=== PATIENT | male | born 1955 | race Caucasian/White ===

== ENCOUNTER 2021-10-24 22:28 | Emergency (ER) | payer MEDICARE, BC, SELFPAY ==
[2021-10-24 22:35] VITALS: BP 176/83; PULSE 77; RESP 16; TEMP 36.5; O2SAT 98; BMI 25.0
--- NOTE | 2021-10-24 23:06 | ED.SKABFB ---
HPI - Skin/Abscess/Foreign Bdy General Chief complaint: Skin/Abscess/Foreign Body Stated complaint: Both lower legs hives/water blister x2 months Time Seen by Provider: 10/24/21 23:05 Source: patient Mode of arrival: Ambulatory Limitations: no limitations History of Present Illness HPI narrative: 66-year-old gentleman with a history of asthma, allergies, reflux presents with worsening rash over the posterior aspect of both calves right greater than left. Initially started on the right lower calf as a pruritic plaque that has extended and then developed vesicles that are beginning to weep with increasing itching and increasing erythema. He describes no fevers, cough, chills, abdominal pain, vomiting, diarrhea, palpitations, chest pain, dyspnea, headaches. Related Data Home Medications Medication Instructions Recorded Confirmed cetirizine 10 mg tablet 10 mg PO BEDTIME 10/24/21 10/24/21 omeprazole 40 mg capsule,delayed 40 mg PO BEDTIME 10/24/21 10/24/21 release Previous Rx's Medication Instructions Recorded cephalexin 500 mg capsule 500 mg PO TID 7 Days #21 cap 10/24/21 methylprednisolone 4 mg tablets in 4 mg PO DAILY #21 ea 10/24/21 a dose pack (Medrol (Erasmo)) Allergies Allergy/AdvReac Type Severity Reaction Status Date / Time No Known Drug Allergies Allergy Verified 10/24/21 23:49 Review of Systems Review of Systems Narrative: Remainder of complete review of systems is otherwise unremarkable except for that included in the HPI. Patient History Medical History (Updated 10/24/21 @ 23:44 by Sera Matute MD) Acid reflux Asthma Social History Smoking Status: Never smoker Smoking Status: Never smoker alcohol intake frequency: a few times a week Substance Use Type: does not use Exam Initial Vital Signs Initial Vital Signs: Vital Signs Temperature 97.7 F 10/24/21 22:35 Pulse Rate 77 10/24/21 22:35 Respiratory Rate 16 10/24/21 22:35 Blood Pressure 176/83 H 10/24/21 22:35 Pulse Oximetry 98 10/24/21 22:35 General: Healthy appearing, in no acute distress. Able to give a complete and coherent history. Well-nourished well-developed HEENT: Moist mucous membranes, normal sclera with reactive pupils, Neck: No JVD, supple Respiratory: Lungs with scattered mild wheezing in all lung canales, no rales no rhonchi. Full and symmetrical air movement Cardiac: Regular rate and rhythm no murmurs no bruits Abdomen: Soft, nontender, good bowel tones, no flank pain Skin: Scaling plaque with satellite lesions extending from the lower posterior calf up to mid calf on the right with small developing satellite lesions on the left. On the right calf he has surrounding erythema and warmth consistent with cellulitis as well as vesicles. He has mild right inguinal adenopathy no left inguinal adenopathy. Neurologic: Grossly neurologically intact with no obvious asymmetries or abnormalities Extremities: No trauma, well perfused Psych: Cooperative, appropriate insight and affect Course Orders Ordered: ED Orders 10/24/21 23:45 Wound Culture and Gram Stain Stat Discontinued Medications Cephalexin HCl (Cephalexin 250 Mg Capsule) 500 mg PO NOW ONE Stop: 10/24/21 23:46 Last Admin: 10/24/21 23:54 Dose: 500 mg Documented by: DONNA Methylprednisolone (Methylprednisolone 125 Mg/2 Ml Vial) 125 mg IM NOW ONE Stop: 10/24/21 23:46 Last Admin: 10/24/21 23:53 Dose: 125 mg Documented by: DONNA Vital Signs Vital signs: Vital Signs - 8 hr 10/24/21 22:35 10/25/21 00:00 Temperature 97.7 F Pulse Rate 77 69 Respiratory Rate 16 18 Blood Pressure 176/83 H 131/71 Pulse Oximetry 98 98 MDM - Skin/Abscess/Foreign Bdy MDM Narrative Medical decision making narrative: 66-year-old gentleman with what likely started as an eczematous rash perhaps even a dyshidrotic eczema that has extended and now has a superficial infection as well. Staff for strep for most likely. No evidence of sepsis. Will give him a shot of Solu-Medrol in the emergency department and then a Medrol Dosepak for the eczema component and place him on Keflex for 7 days for the infection component. One of the vesicles was unroofed and sent for culture. This is not any type of distribution or appearance that seems to be zoster. Discharge Plan Departure Patient Disposition: Home Clinical Impression: Eczema Qualifiers: Eczema type: unspecified Qualified Code(s): L30.9 - Dermatitis, unspecified Cellulitis Qualifiers: Site of cellulitis: extremity Site of cellulitis of extremity: lower extremity Laterality: right Qualified Code(s): L03.115 - Cellulitis of right lower limb Instructions: DI for Cellulitis -- Adult, DI for Atopic Dermatitis-Adult Activity Restrictions/Additional Instructions: Thank you for coming in tonight I suspect that the itchy rash was a type of eczema initially. Using [id number] 1% hydrocortisone cream(usually labeled as ?anti itch? ) can help control the dryness. Unfortunately it has now become infected and your developing cellulitis. For the rash I have given you a shot of Solu-Medrol and will suggest an additional 5 days of decreasing steroid. This will also help with the mild wheezing that I noticed this evening any may notice that you simply feel better with less joint aches for the next couple of days as well I am also going to start you on cephalexin/Keflex, and antibiotic to treat the cellulitis. If the redness continues to worsen, you have more swelling, your developing fevers or chills or develop new or worsening symptoms you do need to return to the emergency department I hope you feel better Prescriptions: New cephalexin 500 mg capsule 500 mg PO TID 7 Days Qty: 21 0RF methylprednisolone [Medrol (Erasmo)] 4 mg tablets,dose pack 4 mg PO DAILY Qty: 21 0RF No Action cetirizine 10 mg Tablet 10 mg PO BEDTIME 0RF omeprazole 40 mg capsule,delayed release(DR/EC) 40 mg PO BEDTIME 0RF
[2021-10-24] MEDS: methylPREDNISolone 125 MG/2 ML VIAL IM (23:53)
[2021-10-24] MEDS: cephALEXin 250 MG CAPSULE 500 MG PO (23:54)
[2021-10-25] VITALS: BP 131/71; PULSE 69; RESP 18; O2SAT 98
== END 2021-10-25 00:07 | disposition home or self-care (01) ==
PROVIDERS: Emergency Provider Emergency Medicine
DX: L03.115 Cellulitis of right lower limb (principal); L30.9 Dermatitis, unspecified
CPT/HCPCS: 87070; 87075; 87205; 96372; 99283; J2930